=== PATIENT | female | born 1990 | race Caucasian/White ===

== ENCOUNTER 2017-04-10 08:38 | Emergency (ER) | payer OTHER ==
[~2017-04-10] VITALS: Ht 154.9 cm; Wt 75.6 kg
[~2017-04-10 08:38] MED LIST: CIPR-249 PO; FLOM5CAP PO; LORT1TAB PO; TYLE325T5 PO
[2017-04-10] MEDS ORDERED: ONDANSETRON 4MG/2ML VIAL (J2405) IV ONE (09:15)
[2017-04-10] MEDS ORDERED: MORPHINE 4 MG/ML 1ML SYRINGE IV ONE ×2 (09:15→11:15)
[2017-04-10 09:23] LABS: CONTROL LINE UCG INT CTR LINE PRESENT
[2017-04-10] MEDS ORDERED: KETOROLAC 30 MG/ML VIAL (J1885) IV ONE (09:30)
[2017-04-10 09:46] LABS: MEAN CORPUSCULAR HEMOGLOBIN 30.4 pg (27.0-33.0); MEAN CORPUSCULAR HGB CONC 33.3 g/dl (32.0-36.5); MEAN CORPUSCULAR VOLUME 91.2 fl (80.0-96.0); WHITE BLOOD COUNT 5.6 K/mm3 (4.0-10.0)
[2017-04-10 10:12] LABS: ANION GAP 3 MEQ/L (8-16); BLOOD UREA NITROGEN 11 MG/DL (7-18); CALCIUM LEVEL 8.5 MG/DL (8.5-10.1); CARBON DIOXIDE LEVEL 31 MEQ/L (21-32); CHLORIDE LEVEL 107 MEQ/L (98-107); CREATININE FOR GFR 0.75 MG/DL (0.55-1.02); GLOMERULAR FILTRATION RATE > 60.0 (>60); GLUCOSE, FASTING 95 MG/DL (70-105); SODIUM LEVEL 141 MEQ/L (136-145)
[2017-04-10] MEDS ORDERED: PERC5TAB12 PO (12:09)
[2017-04-10] MEDS ORDERED: KETO10TAB PO (12:11)
--- NOTE | 2017-04-10 12:14 | REP ---
Clinical: Left flank pain. Comparison: 05/27/2016. Findings: Current examination demonstrates mild acute left-sided obstructive uropathy with mild hydroureteronephrosis and perinephric stranding secondary to a 3 mm obstructing calculus at the ureterovesical junction (image 121). 2 mm nonobstructing left renal calculus also identified. The right kidney/ureter and bladder appear normal. Liver, spleen, pancreas, and bilateral adrenal glands are normal for noncontrast evaluation. Subcentimeter hepatic cyst again suggested. The enteric system is without obstruction or acute inflammatory process. Pelvis demonstrates collapsed normal bladder and age-appropriate uterus/adnexa. No pelvic fluid or ascites. No free air. No adenopathy. Abdominal aorta without aneurysm. Surrounding musculoskeletal structures are intact. Impression: Mild acute left-sided obstructive uropathy with a 3 mm calculus at the ureterovesical junction and 2 mm nonobstructing left renal calculus. Signed by Zacarias Aparicio MD 04/10/2017 10:00 A
[2017-04-10] MEDS ORDERED: PERCOCET 5MG/325MG TAB PO ONE ×2 (12:30→16:45)
[2017-04-10] MEDS ORDERED: MORPHINE 2 MG/ML 1ML SYRINGE IV ONE (12:30)
[2017-04-10] MEDS ORDERED: PREN29CH PO (15:25)
[2017-04-10] MEDS ORDERED: ZZZQ50LI PO (15:25)
[2017-04-10] MEDS ORDERED: CHILLIQ10 PO (15:25)
[2017-04-10 16:34] VITALS: BP 114/69
--- NOTE | 2017-04-10 16:55 | CR ---
DATE OF CONSULTATION: 04/10/2017 CONSULTING PHYSICIAN: Dr. Kelly Conway MOGUL OPERATOR: Dr. Param Robertson REASON FOR CONSULTATION: Left flank pain due to 3 mm distal ureteral stone. HISTORY OF PRESENT ILLNESS: This is a 26-year-old female patient who has been having severe pain since 24 hours ago. For this reason, she came to the emergency department at [facility]. The pain was 9 out of 10. She was given IV and pain medication. The pain has come down. It is a 3 mm stone in the intramural portion of the left ureter causing left flank pain. She has no signs of symptoms of infection or sepsis. She is completely asymptomatic at this moment in time when I see the patient. She was actually sleeping, we woke her up and talked with her. The pain has gone down, it is 3 out of 10. She has no nausea and no vomiting. She refers to the pain actually as gone when she is lying down, when she stands and walks the pain is increased a little more, 3 out of 10. At this moment in time, she has no pain at all. PHYSICAL EXAMINATION: She is awake, oriented times three. Well nourished. Well hydrated. HEENT: Negative. HEART: Regular rate and rhythm. No murmurs, no gallops. ABDOMEN: Soft, nontender, nondistended. Left flank percussion is positive times 1+, right flank percussion is negative. MUSCULOSKELETAL: Intact. Is able to move her upper and lower extremities. LUNGS: Clear to auscultation. No rhonchi. IMPRESSION/PLAN: This is a 26-year-old female patient with a left flank pain due to a left distal ureteral stone of 3 mm in diameter. PLAN: The patient has elected to actually go to her house and be discharged with pain medication. She will followup at [facility] in about 3 to 5 days to continue her on pain medication. There is a very high chance, 90% chance, that this stone can be passed with oral pain medication in about 1 to 2 weeks. If it does not pass, we will electively treat the stone surgically, but at this moment in time we will give her a chance to actually pass the stone with medical expulsive therapy.
== END 2017-04-10 16:43 | disposition home or self-care (01) ==
LOC: M ED 09:14
DX: N20.1 Calculus of ureter (principal)
CPT/HCPCS: 74176; 80048; 81001; 84703; 85027; 87086; 96374; 96375; 96376; 99283; J1885; J2405

== ENCOUNTER 2017-05-17 11:46 | Emergency (ER) | payer OTHER ==
[~2017-05-17] VITALS: Ht 154.9 cm; Wt 73.2 kg
[~2017-05-17 11:46] MED LIST changes: +CHILLIQ10 PO; +KETO10TAB PO; +PERC5TAB12 PO; +PREN29CH PO; +ZZZQ50LI PO
[2017-05-17] MEDS ORDERED: ONDANSETRON 4 MG ORAL DISINTEGRATING TAB (S0181) PO ONE (12:30)
[2017-05-17 12:43] LABS: BASO % 0.7 % (0.0-1.0); EOS # 0.1 K/mm3 (0.0-0.50); EOS % 2.6 % (0.0-3.0); LARGE UNSTAINED CELL # 0.1 K/mm3 (0.0-0.4); LYMPH # 1.1 K/mm3 (1.5-6.5); LYMPH % 21.8 % (24.0-44.0); MEAN CORPUSCULAR HEMOGLOBIN 30.8 pg (27.0-33.0); MEAN CORPUSCULAR HGB CONC 35.2 g/dl (32.0-36.5); MEAN CORPUSCULAR VOLUME 87.5 fl (80.0-96.0); MONO # 0.2 K/mm3 (0.0-0.8); MONO % 3.9 % (0.0-5.0); NEUTROPHILS # 3.4 K/mm3 (1.8-7.7); NEUTROPHILS % 69.9 % (36.0-66.0); PLATELET COUNT, AUTOMATED 178 k/mm3 (150-450); RED CELL DISTRIBUTION WIDTH 12.9 % (11.5-14.5); WHITE BLOOD COUNT 4.9 K/mm3 (4.0-10.0)
[2017-05-17 13:01] LABS: ALBUMIN 4.2 GM/DL (3.2-5.2); ALBUMIN/GLOBULIN RATIO 1.45 (1.00-1.93); ALKALINE PHOSPHATASE 63 U/L (45-117); ALT/SGPT 17 U/L (12-78); ANION GAP 8 MEQ/L (8-16); AST/SGOT 11 U/L (15-37); BILIRUBIN,DIRECT 0.4 MG/DL (0.0-0.2); BLOOD UREA NITROGEN 9 MG/DL (7-18); CARBON DIOXIDE LEVEL 27 MEQ/L (21-32); CHLORIDE LEVEL 106 MEQ/L (98-107); CREATININE FOR GFR 0.74 MG/DL (0.55-1.02); GLOMERULAR FILTRATION RATE > 60.0 (>60); GLUCOSE, FASTING 84 MG/DL (70-105); POTASSIUM SERUM 3.9 MEQ/L (3.5-5.1); SODIUM LEVEL 141 MEQ/L (136-145); TOTAL PROTEIN 7.1 GM/DL (6.4-8.2)
[2017-05-17 13:53] VITALS: BP 123/72
[2017-05-17 13:59] LABS: MICROSCOPIC INDICATED? MAN YES (NO)
[2017-05-17 14:09] LABS: BACTERIA, URINE LARGE AMOUNT; RBC, URINE TNTC /hpf (0-3); SQUAMOUS EPITHELIAL CELL URINE SMALL AMOUNT /hpf (SMALL AMT); WBC, URINE TNTC /hpf (0-3)
[2017-05-17 14:10] LABS: MICROSCOPIC EXAM PERFORMED
[2017-05-17] MEDS ORDERED: MACR100C43 PO (14:17)
[2017-05-17] MEDS ORDERED: ZOFR4TAB3 PO (14:17)
== END 2017-05-17 14:23 | disposition home or self-care (01) ==
LOC: M ED 11:46
DX: N30.91 Cystitis, unspecified with hematuria (principal); E86.0 Dehydration

== ENCOUNTER → 2017-05-31 | Outpatient (REF) | payer OTHER ==
[~2017-05-31] MED LIST changes: +MACR100C43 PO; +ZOFR4TAB3 PO
[2017-05-31 14:03] LABS: BASO % 0.3 % (0.0-1.0); EOS # 0.1 K/mm3 (0.0-0.50); LARGE UNSTAINED CELL # 0.1 K/mm3 (0.0-0.4); LARGE UNSTAINED CELL % 1.5 % (0.0-4.0); LYMPH # 1.2 K/mm3 (1.5-6.5); LYMPH % 24.8 % (24.0-44.0); MEAN CORPUSCULAR HEMOGLOBIN 30.8 pg (27.0-33.0); MEAN CORPUSCULAR HGB CONC 33.8 g/dl (32.0-36.5); MONO # 0.3 K/mm3 (0.0-0.8); MONO % 5.6 % (0.0-5.0); NEUTROPHILS % 64.8 % (36.0-66.0); PLATELET COUNT, AUTOMATED 189 k/mm3 (150-450); RED CELL DISTRIBUTION WIDTH 13.2 % (11.5-14.5); WHITE BLOOD COUNT 4.7 K/mm3 (4.0-10.0)
[2017-05-31 14:45] LABS: ALBUMIN 4.3 GM/DL (3.2-5.2); ALBUMIN/GLOBULIN RATIO 1.48 (1.00-1.93); ALKALINE PHOSPHATASE 57 U/L (45-117); ALT/SGPT 25 U/L (12-78); ANION GAP 9 MEQ/L (8-16); AST/SGOT 14 U/L (15-37); BILIRUBIN,TOTAL 1.9 MG/DL (0.2-1.0); BLOOD UREA NITROGEN 7 MG/DL (7-18); CALCIUM LEVEL 8.7 MG/DL (8.5-10.1); CARBON DIOXIDE LEVEL 28 MEQ/L (21-32); CHLORIDE LEVEL 106 MEQ/L (98-107); CHOLESTEROL LEVEL 159 MG/DL (<200); CREATININE FOR GFR 0.71 MG/DL (0.55-1.02); GLOMERULAR FILTRATION RATE > 60.0 (>60); GLUCOSE, FASTING 74 MG/DL (70-105); SODIUM LEVEL 143 MEQ/L (136-145); TOTAL PROTEIN 7.2 GM/DL (6.4-8.2); TRIGLYCERIDES LEVEL 52 MG/DL (<150)
== END ==
LOC: M SFHCPLAZ 10:04
PROVIDERS: ATTEND Nurse Practitioner Family
DX: Z00.00 Encounter for general adult medical examination without abnormal findings (principal); N20.0 Calculus of kidney; Z13.220 Encounter for screening for lipoid disorders; N39.0 Urinary tract infection, site not specified

== ENCOUNTER → 2017-07-21 | Outpatient (REF) | payer OTHER ==
[2017-07-21 17:41] LABS: BASO # 0.1 10^3/uL (0.0-0.2); EOS # 0.2 10^3/uL (0.0-0.50); EOS % 3.4 % (0.0-3.0); IMMATURE GRANULOCYTE % 0.2 % (0-0); LYMPH # 1.4 10^3/uL (1.5-6.5); LYMPH % 28.8 % (24.0-44.0); MEAN CORPUSCULAR HEMOGLOBIN 30.3 pg (27.0-33.0); MEAN CORPUSCULAR HGB CONC 32.7 g/dl (32.0-36.5); MEAN CORPUSCULAR VOLUME 92.7 fl (80.0-96.0); MONO # 0.3 10^3/uL (0.0-0.8); MONO % 5.8 % (0.0-5.0); NEUTROPHILS % 60.8 % (36.0-66.0); PLATELET COUNT, AUTOMATED 189 10^3/uL (150-450); RED CELL DISTRIBUTION WIDTH 13.3 % (11.5-14.5)
[2017-07-24 11:03] LABS: CONTROL LINE MONO RF C INT CTR LINE PRESENT
== END ==
LOC: M SFHCPLAZ 14:52
PROVIDERS: ATTEND Nurse Practitioner Family
DX: J02.9 Acute pharyngitis, unspecified (principal)

== ENCOUNTER → 2017-08-31 | Outpatient (REF) | payer OTHER ==
[2017-08-31 12:03] LABS: BASO % 0.4 % (0.0-1.0); EOS # 0.1 10^3/uL (0.0-0.50); EOS % 1.3 % (0.0-3.0); IMMATURE GRANULOCYTE % 0.4 % (0-0); LYMPH # 1.6 10^3/uL (1.5-6.5); LYMPH % 20.5 % (24.0-44.0); MEAN CORPUSCULAR HEMOGLOBIN 30.1 pg (27.0-33.0); MEAN CORPUSCULAR VOLUME 91.2 fl (80.0-96.0); MONO # 0.4 10^3/uL (0.0-0.8); MONO % 4.8 % (0.0-5.0); NEUTROPHILS # 5.6 10^3/uL (1.8-7.7); NEUTROPHILS % 72.6 % (36.0-66.0); PLATELET COUNT, AUTOMATED 199 10^3/uL (150-450); WHITE BLOOD COUNT 7.7 10^3/uL (4.0-10.0)
[2017-08-31 12:33] LABS: ALBUMIN/GLOBULIN RATIO 1.33 (1.00-1.93); ALKALINE PHOSPHATASE 62 U/L (45-117); ALT/SGPT 22 U/L (12-78); ANION GAP 8 MEQ/L (8-16); AST/SGOT 10 U/L (7-37); BILIRUBIN,TOTAL 1.3 MG/DL (0.2-1.0); BLOOD UREA NITROGEN 7 MG/DL (7-18); CARBON DIOXIDE LEVEL 28 MEQ/L (21-32); CHLORIDE LEVEL 106 MEQ/L (98-107); CREATININE FOR GFR 0.69 MG/DL (0.55-1.02); GLOMERULAR FILTRATION RATE > 60.0 (>60); GLUCOSE, FASTING 91 MG/DL (70-105); POTASSIUM SERUM 4.3 MEQ/L (3.5-5.1); SODIUM LEVEL 142 MEQ/L (136-145)
== END ==
LOC: M SFHCPLAZ 09:54
PROVIDERS: ATTEND Nurse Practitioner Family
DX: K21.9 Gastro-esophageal reflux disease without esophagitis (principal); R10.13 Epigastric pain

== ENCOUNTER → 2018-06-07 | Outpatient (REF) | payer OTHER ==
[2018-06-07 15:44] LABS: BASO % 0.6 % (0.0-1.0); EOS # 0.1 10^3/uL (0.0-0.50); EOS % 1.4 % (0.0-3.0); HEMATOCRIT 40.6 % (36.0-47.0); HEMOGLOBIN 13.8 g/dl (12.0-15.5); IMMATURE GRANULOCYTE % 0.2 % (0-3.0); LYMPH # 1.2 10^3/uL (1.5-6.5); LYMPH % 24.5 % (24.0-44.0); MEAN CORPUSCULAR HEMOGLOBIN 30.5 pg (27.0-33.0); MEAN CORPUSCULAR VOLUME 89.8 fl (80.0-96.0); MONO # 0.2 10^3/uL (0.0-0.8); MONO % 4.8 % (0.0-5.0); NEUTROPHILS # 3.5 10^3/uL (1.8-7.7); NEUTROPHILS % 68.5 % (36.0-66.0); PLATELET COUNT, AUTOMATED 160 10^3/uL (150-450); RED BLOOD COUNT 4.52 10^6/uL (4.00-5.40); RED CELL DISTRIBUTION WIDTH 13.2 % (11.5-14.5)
[2018-06-07 16:04] LABS: ESTIMATED AVERAGE GLUCOSE 88 MG/DL (60-110); HEMOGLOBIN A1c 4.7 %
[2018-06-07 16:15] LABS: ALBUMIN 3.8 GM/DL (3.2-5.2); ALBUMIN/GLOBULIN RATIO 1.31 (1.00-1.93); ALKALINE PHOSPHATASE 54 U/L (45-117); ALT/SGPT 23 U/L (12-78); AMYLASE 28 U/L (25-115); ANION GAP 6 MEQ/L (8-16); AST/SGOT 11 U/L (7-37); BLOOD UREA NITROGEN 10 MG/DL (7-18); CALCIUM LEVEL 8.5 MG/DL (8.5-10.1); CARBON DIOXIDE LEVEL 28 MEQ/L (21-32); CHLORIDE LEVEL 105 MEQ/L (98-107); CREATININE FOR GFR 0.73 MG/DL (0.55-1.30); FREE T4 1.26 NG/DL (0.76-1.46); GLOMERULAR FILTRATION RATE > 60.0 (>60); GLUCOSE, FASTING 72 MG/DL (70-100); HCG, SERUM QUANTITATIVE < 1.0 MIU/ML; LIPASE 124 U/L (73-393); SODIUM LEVEL 139 MEQ/L (136-145); THYROID STIMULATING HORMONE 0.862 uIU/ML (0.358-3.740); TOTAL PROTEIN 6.7 GM/DL (6.4-8.2)
== END ==
LOC: M SFHCPLAZ 14:13
DX: R11.11 Vomiting without nausea (principal)

== ENCOUNTER → 2020-02-19 | Outpatient (CLI) | payer OTHER ==
[~2020-02-19] MED LIST changes: +FLOM0.4C39 PO; -FLOM5CAP PO; +PREN1CHW6 PO; -PREN29CH PO; +ZOFR4TAB14 PO; -ZOFR4TAB3 PO
[2020-02-19 19:27] LABS: BASO % 0.5 % (0.0-1.0); EOS # 0.2 10^3/uL (0.0-0.5); EOS % 2.9 % (0.0-3.0); HEMATOCRIT 41.3 % (36.0-47.0); HEMOGLOBIN 13.9 g/dl (12.0-15.5); LYMPH # 1.4 10^3/uL (1.5-5.0); LYMPH % 25.3 % (24.0-44.0); MEAN CORPUSCULAR HEMOGLOBIN 31.7 pg (27.0-33.0); MEAN CORPUSCULAR HGB CONC 33.7 g/dl (32.0-36.5); MEAN CORPUSCULAR VOLUME 94.3 fl (80.0-96.0); MONO # 0.3 10^3/uL (0.0-0.8); MONO % 4.9 % (0.0-5.0); NEUTROPHILS # 3.7 10^3/uL (1.5-8.5); PLATELET COUNT, AUTOMATED 176 10^3/uL (150-450); RED BLOOD COUNT 4.38 10^6/uL (4.00-5.40); WHITE BLOOD COUNT 5.5 10^3/uL (4.0-10.0)
[2020-02-19 19:30] LABS: MONO SCRN NEGATIVE (NEGATIVE)
[2020-02-19 19:37] LABS: ALBUMIN 3.6 GM/DL (3.2-5.2); ALT/SGPT 30 U/L (12-78); BILIRUBIN,TOTAL 1.9 MG/DL (0.2-1.0); BLOOD UREA NITROGEN 7 MG/DL (7-18); C REACTIVE PROTEIN QUANTITATIV < 0.30 MG/DL (0.00-0.30); CALCIUM LEVEL 8.6 MG/DL (8.5-10.1); CARBON DIOXIDE LEVEL 29 MEQ/L (21-32); CHLORIDE LEVEL 107 MEQ/L (98-107); CREATININE FOR GFR 0.81 MG/DL (0.55-1.30); GLOMERULAR FILTRATION RATE > 60.0 (>60); GLUCOSE, FASTING 81 MG/DL (70-100); POTASSIUM SERUM 4.2 MEQ/L (3.5-5.1); SODIUM LEVEL 140 MEQ/L (136-145); TOTAL PROTEIN 6.2 GM/DL (6.4-8.2)
[2020-02-22 00:06] LABS: ANA (HEP2) Negative (.); C-PEPTIDE 2.7 ng/mL (1.1-4.4); Lyme Disease IgG/IgM Antibodie <0.91 ISR (0.00-0.90); Lyme Disease IgM Ab Quantitati <0.80 index (0.00-0.79); SSA SJOGRENS A <0.2 AI (0.0-0.9); SSB SJOGRENS B 0.6 AI (0.0-0.9)
== END ==
LOC: M WUC 15:57
PROVIDERS: ATTEND Family Medicine
DX: K11.20 Sialoadenitis, unspecified (principal)

== ENCOUNTER → 2020-03-20 | Outpatient (REF) | payer OTHER, SELFPAY ==
[2020-03-20 15:27] LABS: BASO % 0.6 % (0.0-1.0); EOS # 0.3 10^3/uL (0.0-0.5); EOS % 5.2 % (0.0-3.0); HEMATOCRIT 40.6 % (36.0-47.0); HEMOGLOBIN 13.3 g/dl (12.0-15.5); LYMPH # 1.3 10^3/uL (1.5-5.0); LYMPH % 25.7 % (24.0-44.0); MEAN CORPUSCULAR HEMOGLOBIN 31.2 pg (27.0-33.0); MEAN CORPUSCULAR HGB CONC 32.8 g/dl (32.0-36.5); MEAN CORPUSCULAR VOLUME 95.3 fl (80.0-96.0); MONO # 0.3 10^3/uL (0.0-0.8); MONO % 5.2 % (0.0-5.0); NEUTROPHILS # 3.1 10^3/uL (1.5-8.5); NEUTROPHILS % 63.1 % (36.0-66.0); PLATELET COUNT, AUTOMATED 210 10^3/uL (150-450); RED BLOOD COUNT 4.26 10^6/uL (4.00-5.40)
[2020-03-20 15:36] LABS: BLOOD UREA NITROGEN 10 MG/DL (7-18); CALCIUM LEVEL 8.8 MG/DL (8.5-10.1); CARBON DIOXIDE LEVEL 28 MEQ/L (21-32); CHLORIDE LEVEL 108 MEQ/L (98-107); CREATININE FOR GFR 0.78 MG/DL (0.55-1.30); FERRITIN 36 NG/ML (8-252); FREE T4 1.19 NG/DL (0.76-1.46); GLOMERULAR FILTRATION RATE > 60.0 (>60); GLUCOSE, FASTING 81 MG/DL (70-100); IRON (FE) 130 UG/DL (50-170); PERCENT SATURATION 26.8 % (13.2-45.0); POTASSIUM SERUM 4.8 MEQ/L (3.5-5.1); SODIUM LEVEL 140 MEQ/L (136-145); TOTAL IRON BINDING CAPACITY 485 UG/DL (250-450)
[2020-03-20 15:37] LABS: VITAMIN B12 LEVEL 289 PG/ML (247-911)
[2020-03-20 15:40] LABS: HEMOGLOBIN A1c 4.4 %
== END ==
LOC: M SFHCPLAZ 13:29
PROVIDERS: ATTEND Physician Assistant
DX: R53.83 Other fatigue (principal); N92.6 Irregular menstruation, unspecified; R20.2 Paresthesia of skin

== ENCOUNTER → 2020-04-13 | Outpatient (REF) | payer OTHER, SELFPAY ==
[2020-04-13 20:26] LABS: CHLAMYDIA DNA AMPLIFICATION NEGATIVE (NEGATIVE); GC DNA AMPLIFICATION NEGATIVE (NEGATIVE)
== END ==
LOC: M SFHCWAGY 16:53
PROVIDERS: ATTEND Obstetrics & Gynecology
DX: Z11.3 Encounter for screening for infections with a predominantly sexual mode of transmission (principal); Z12.4 Encounter for screening for malignant neoplasm of cervix; Z01.419 Encounter for gynecological examination (general) (routine) without abnormal findings

== ENCOUNTER 2020-09-24 10:30 | Emergency (ER) | payer OTHER, SELFPAY ==
[~2020-09-24] VITALS: Ht 154.9 cm; Wt 76.4 kg
[2020-09-24 12:05] LABS: BASO % 0.7 % (0.0-1.0); EOS # 0.1 10^3/uL (0.0-0.5); EOS % 2.9 % (0.0-3.0); HEMATOCRIT 39.4 % (36.0-47.0); HEMOGLOBIN 12.8 g/dl (12.0-15.5); LYMPH # 1.4 10^3/uL (1.5-5.0); LYMPH % 32.1 % (24.0-44.0); MEAN CORPUSCULAR HEMOGLOBIN 30.3 pg (27.0-33.0); MEAN CORPUSCULAR HGB CONC 32.5 g/dl (32.0-36.5); MEAN CORPUSCULAR VOLUME 93.1 fl (80.0-96.0); MONO # 0.2 10^3/uL (0.0-0.8); NEUTROPHILS # 2.5 10^3/uL (1.5-8.5); NEUTROPHILS % 59.1 % (36.0-66.0); PLATELET COUNT, AUTOMATED 157 10^3/uL (150-450); RED BLOOD COUNT 4.23 10^6/uL (4.00-5.40); WHITE BLOOD COUNT 4.2 10^3/uL (4.0-10.0)
[2020-09-24 12:17] LABS: INR 0.84; PROTHROMBIN TIME 11.7 SECONDS (12.5-14.3)
[2020-09-24 12:37] LABS: RSV AMPLIFICATION NEGATIVE (NEGATIVE)
[2020-09-24 12:42] LABS: ALBUMIN 3.7 GM/DL (3.2-5.2); ALT/SGPT 20 U/L (12-78); BILIRUBIN,DIRECT 0.4 MG/DL (0.0-0.2); BILIRUBIN,TOTAL 1.5 MG/DL (0.2-1.0); BLOOD UREA NITROGEN 12 MG/DL (7-18); CALCIUM LEVEL 8.6 MG/DL (8.5-10.1); CARBON DIOXIDE LEVEL 29 MEQ/L (21-32); CHLORIDE LEVEL 109 MEQ/L (98-107); CK-MB VALUE MASS < 1.0 NG/ML (<3.6); CPK CREATINE PHOSPHOKINASE 40 U/L (26-192); CREATININE FOR GFR 0.86 MG/DL (0.55-1.30); GLOMERULAR FILTRATION RATE > 60.0 (>60); GLUCOSE, FASTING 88 MG/DL (70-100); SODIUM LEVEL 141 MEQ/L (136-145); THYROXINE (T4) 11.7 UG/DL (4.5-12.0); TOTAL PROTEIN 6.2 GM/DL (6.4-8.2); TROPONIN I < 0.02 NG/ML (< 0.10)
[2020-09-24 12:45] LABS: HCG, SERUM QUALITATIVE NEGATIVE (NEGATIVE)
--- NOTE | 2020-09-24 13:19 | REP ---
INDICATION: DYSPNEA/COUGH. COMPARISON: Comparison chest x-ray May 27, 2016.. TECHNIQUE: Sitting AP portable chest x-ray. FINDINGS: The lungs are well inflated and clear. The pleural angles are sharp. Heart size is normal. Pulmonary vasculature is not increased. No bony abnormality is seen. There are clips in right upper quadrant of the abdomen consistent with a previous cholecystectomy. IMPRESSION: No active disease. <Electronically signed by Sushil Smith > 09/24/20 [id number]
[2020-09-24] MEDS ORDERED: ISOVUE-370 76% 100ML VIAL As Ordered ONE (13:26)
[2020-09-24] MEDS ORDERED: NS 1,000 ML IV ONE (13:30)
--- NOTE | 2020-09-24 14:06 | REP ---
INDICATION: dyspnea. COMPARISON: Abdomen and pelvis CT dated 04/10/2017. TECHNIQUE: CT of the abdomen and pelvis with IV contrast FINDINGS: CT of the abdomen and pelvis with IV contrast performed contiguously with the chest CT this same date. The visualized lung martinez are unremarkable. The hepatic parenchyma is unremarkable. There are surgical clips in the gallbladder fossa. This is unchanged. The pancreas and spleen are unremarkable. The adrenals are unremarkable. The kidneys are unremarkable. There is no hydronephrosis. The abdominal aorta is unremarkable. There is no periaortic adenopathy or mass. The bowel and mesentery are unremarkable. There is no ascites. There is no pneumoperitoneum. Pelvis: The uterus is unremarkable. There is a 12 mm left ovarian follicle. There is a 2.5 cm right ovarian cyst. There is no free fluid in the pelvis. There is no pelvic adenopathy. Bladder is unremarkable. The pelvic bowel loops are unremarkable. The appendix is unremarkable. IMPRESSION: Right ovarian cyst. Left ovarian follicle. No ascites. No bowel distention. No hydronephrosis. Otherwise, negative abdomen and pelvis CT. <Electronically signed by Gerardo Snider > 09/24/20 2009
--- NOTE | 2020-09-24 14:16 | REP ---
INDICATION: dyspnea. COMPARISON: None. TECHNIQUE: CT of the chest with IV contrast, CT pulmonary angio protocol. FINDINGS: There are no emboli in the pulmonary artery trunk or central pulmonary arteries or in the lobar segment branches. There are no infiltrates or pleural effusions. There are no masses or nodules. There is no mediastinal, hilar or axillary lymph node enlargement. The thoracic aorta is unremarkable. Cardiac size is normal. There is no pericardial effusion. IMPRESSION: There are no pulmonary emboli. Otherwise, negative CT study of the chest. <Electronically signed by Gerardo Snider > 09/24/20 [id number]
[2020-09-24 15:19] VITALS: BP 126/75
== END 2020-09-24 15:25 | disposition home or self-care (01) ==
LOC: M ED 10:30
DX: R06.02 Shortness of breath (principal); R05 Cough; B34.9 Viral infection, unspecified; N83.201 Unspecified ovarian cyst, right side; G43.909 Migraine, unspecified, not intractable, without status migrainosus; K21.9 Gastro-esophageal reflux disease without esophagitis; I73.00 Raynaud's syndrome without gangrene; Z88.5 Allergy status to narcotic agent; Z88.8 Allergy status to other drugs, medicaments and biological substances
CPT/HCPCS: 36415; 71045; 71275; 74177; 80048; 80076; 81001; 82550; 82553; 83690; 84436; 84443; 84484; 84703; 85025; 85610; 87086; 87631; 93041; 94760; 96360; 96361; 99284; Q9967

== ENCOUNTER 2021-03-11 15:25 | Emergency (ER) | payer OTHER ==
[~2021-03-11] VITALS: Ht 154.9 cm; Wt 76.0 kg
[2021-03-11 15:26] VITALS: BP 118/84
[2021-03-11] MEDS ORDERED: PANTOPRAZOLE 40MG VIAL (C9113 PER 1) IV ONE (17:05)
[2021-03-11 17:10] LABS: BASO % 0.3 % (0.0-1.0); HEMATOCRIT 40.9 % (36.0-47.0); HEMOGLOBIN 13.7 g/dl (12.0-15.5); LYMPH # 1.1 10^3/uL (1.5-5.0); LYMPH % 29.1 % (24.0-44.0); MEAN CORPUSCULAR HGB CONC 33.5 g/dl (32.0-36.5); MEAN CORPUSCULAR VOLUME 95.6 fl (80.0-96.0); MONO # 0.2 10^3/uL (0.0-0.8); MONO % 5.7 % (2.0-8.0); NEUTROPHILS # 2.5 10^3/uL (1.5-8.5); NEUTROPHILS % 63.6 % (36.0-66.0); PLATELET COUNT, AUTOMATED 167 10^3/uL (150-450); RED BLOOD COUNT 4.28 10^6/uL (4.00-5.40); WHITE BLOOD COUNT 3.9 10^3/uL (4.0-10.0)
[2021-03-11 17:31] LABS: HCG, SERUM QUALITATIVE NEGATIVE (NEGATIVE)
[2021-03-11 17:34] LABS: ALBUMIN 3.8 GM/DL (3.2-5.2); ALT/SGPT 20 U/L (12-78); BILIRUBIN,DIRECT 0.3 MG/DL (0.0-0.2); BILIRUBIN,TOTAL 3.1 MG/DL (0.2-1.0); BLOOD UREA NITROGEN 7 MG/DL (7-18); CALCIUM LEVEL 8.7 MG/DL (8.5-10.1); CARBON DIOXIDE LEVEL 27 MEQ/L (21-32); CHLORIDE LEVEL 108 MEQ/L (98-107); CK-MB VALUE MASS < 1.0 NG/ML (<3.6); CPK CREATINE PHOSPHOKINASE 50 U/L (26-192); CREATININE FOR GFR 0.75 MG/DL (0.55-1.30); FREE T4 1.24 NG/DL (0.76-1.46); GLOMERULAR FILTRATION RATE > 60.0 (>60); GLUCOSE, FASTING 89 MG/DL (70-100); LIPASE 81 U/L (73-393); POTASSIUM SERUM 4.3 MEQ/L (3.5-5.1); SODIUM LEVEL 140 MEQ/L (136-145); TOTAL PROTEIN 6.3 GM/DL (6.4-8.2); TROPONIN I < 0.02 NG/ML (< 0.10)
[2021-03-11] MEDS ORDERED: ISOVUE-370 76% 100ML VIAL As Ordered ONE (17:49)
--- NOTE | 2021-03-11 18:20 | REP ---
INDICATION: CHEST PAIN COMPARISON: 09/24/2020 TECHNIQUE: PA and lateral. FINDINGS: The mediastinum and cardiac silhouette are normal. The lung martinez are clear and without acute consolidation, effusion, or pneumothorax. The skeletal structures are intact and normal. IMPRESSION: No acute cardiopulmonary process. <Electronically signed by Zacarias Aparicio > 03/11/21 [id number]
[2021-03-11] MEDS: GASTROGRAFIN SOLUTION 30ML PO SCH ×2 (18:31→18:57)
[2021-03-11] MEDS ORDERED: ONDANSETRON 4MG/2ML VIAL As Ordered ONE (18:34)
[2021-03-11] MEDS ORDERED: ONDANSETRON 4MG/2ML VIAL IV ONE (18:35)
--- NOTE | 2021-03-11 19:58 | ECGEPIP ---
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
--- NOTE | 2021-03-11 20:53 | REPVR ---
PROCEDURE INFORMATION: Exam: CTA Chest With Contrast Exam date and time: 03/11/2021 8:05 PM Age: 30 years old Clinical indication: Pain; Shortness of breath; Chest pressure; Additional info: Cp/sob TECHNIQUE: Imaging protocol: Computed tomographic angiography of the chest with contrast. Axial, coronal and sagittal reformatted images were created and reviewed. 3D rendering (Not supervised by radiologist): MIP and/or 3D reconstructed images were created by the technologist. Radiation optimization: All CT scans at this facility use at least one of these dose optimization techniques: automated exposure control; mA and/or kV adjustment per patient size (includes targeted exams where dose is matched to clinical indication); or iterative reconstruction. Contrast material: ISOVUE 370; Contrast volume: 100 ml; Contrast route: INTRAVENOUS (IV); COMPARISON: CT ANGIO CHEST 09/24/2020 1:29 PM FINDINGS: Pulmonary arteries: Contrast opacification satisfactory. No intraluminal filling defect. Aorta: Unremarkable. No aneurysm or dissection. Lungs: Mild dependent atelectatic change in the lower lobes. No consolidation. Pleural spaces: Unremarkable. No pneumothorax. No pleural effusion. Heart: Unremarkable. No cardiomegaly. No pericardial effusion. Lymph nodes: No pathologically enlarged lymph nodes. Liver: 4 mm low-density lesion in the hepatic dome, too small to characterize. Gallbladder and bile ducts: Status post cholecystectomy. No biliary ductal dilatation. Bones/joints: No acute osseous abnormality. Soft tissues: Unremarkable. IMPRESSION: 1. No CT evidence of pulmonary embolism. 2. Additional findings, as above. Electronically signed by: Raghav Clement On 03/11/2021 20:53:12 PM
--- NOTE | 2021-03-11 20:59 | REPVR ---
PROCEDURE INFORMATION: Exam: CT Abdomen And Pelvis With Contrast Exam date and time: 03/11/2021 8:05 PM Age: 30 years old Clinical indication: Vomiting; Abdominal pain; Epigastric; Additional info: Vomited now has cp/epigastirc pain TECHNIQUE: Imaging protocol: Computed tomography of the abdomen and pelvis with contrast. Axial, coronal and sagittal reformatted images were created and reviewed. Radiation optimization: All CT scans at this facility use at least one of these dose optimization techniques: automated exposure control; mA and/or kV adjustment per patient size (includes targeted exams where dose is matched to clinical indication); or iterative reconstruction. Contrast material: ISOVUE 370; Contrast volume: 100 ml; Contrast route: INTRAVENOUS (IV); Other contrast: Oral, gastrographin; COMPARISON: CT ABD/PEL W/IV CONTRAST ONLY 09/24/2020 1:29 PM FINDINGS: Liver: 4 mm low-density lesions in the hepatic dome, too small to characterize. Gallbladder and bile ducts: Status post cholecystectomy. No biliary ductal dilatation. Pancreas: Unremarkable. Spleen: Unremarkable. Adrenal glands: Normal. No mass. Kidneys and ureters: No mass. No radiodense calculi. No hydronephrosis. Stomach and bowel: No bowel wall thickening. No obstruction. No pneumatosis. Appendix: Normal. Intraperitoneal space: No free fluid. No organized fluid collection. No free air. Vasculature: Unremarkable. No aneurysm. Lymph nodes: No pathologically enlarged lymph nodes. Urinary bladder: Unremarkable as visualized. Reproductive: Dominant left ovarian follicle. Bones/joints: No acute osseous abnormality. Soft tissues: Unremarkable. IMPRESSION: 1. No CT evidence of acute intra-abdominal or pelvic pathology. 2. Additional findings, as above. Electronically signed by: Raghav Clement On 03/11/2021 20:59:22 PM
[2021-03-11] MEDS ORDERED: ONDA4TAB6 PO (21:43)
[2021-03-11] MEDS ORDERED: PEPCCHW3 PO (21:43)
[2021-03-11] MEDS ORDERED: ACETAMINOPHEN TAB 650MG DOSE (2X325MG) PO ONE (22:30)
--- NOTE | 2021-03-13 08:16 | ED PDOC ---
Post-Departure Follow-Up radiology repor tfaxed to Emma Cardenas Sarah MD March 13, 2021 08:16
== END 2021-03-11 22:42 | disposition home or self-care (01) ==
LOC: M ED 15:25
DX: K21.9 Gastro-esophageal reflux disease without esophagitis (principal); R07.89 Other chest pain; F41.9 Anxiety disorder, unspecified; Z79.899 Other long term (current) drug therapy; Z88.5 Allergy status to narcotic agent; Z87.442 Personal history of urinary calculi; Z98.890 Other specified postprocedural states; Z90.49 Acquired absence of other specified parts of digestive tract
CPT/HCPCS: 71046; 71275; 74177; 80048; 80076; 82550; 82553; 83690; 84439; 84443; 84484; 84703; 85025; 93005; 96374; 96375; 99284; C9113; J2405; Q9963; Q9967

== ENCOUNTER 2021-04-15 12:30 | Emergency (ER) | payer OTHER ==
[~2021-04-15] VITALS: Ht 162.6 cm; Wt 79.1 kg
[~2021-04-15 12:30] MED LIST changes: +ONDA4TAB6 PO; +PEPCCHW3 PO
[2021-04-15] MEDS ORDERED: ONDANSETRON 4MG/2ML VIAL IV ONE (13:10)
[2021-04-15] MEDS ORDERED: NS 1,000 ML IV ONE (13:10)
[2021-04-15] MEDS ORDERED: KETOROLAC 30 MG/ML 1ML VIAL IV ONE (13:10)
[2021-04-15 13:40] LABS: BASO % 0.2 % (0.0-1.0); EOS % 0.2 % (0.0-3.0); HEMATOCRIT 44.8 % (36.0-47.0); HEMOGLOBIN 14.8 g/dl (12.0-15.5); LYMPH # 0.8 10^3/uL (1.5-5.0); LYMPH % 12.5 % (24.0-44.0); MEAN CORPUSCULAR HEMOGLOBIN 31.6 pg (27.0-33.0); MEAN CORPUSCULAR VOLUME 95.5 fl (80.0-96.0); MONO # 0.3 10^3/uL (0.0-0.8); MONO % 4.1 % (2.0-8.0); NEUTROPHILS % 82.7 % (36.0-66.0); PLATELET COUNT, AUTOMATED 191 10^3/uL (150-450); RED BLOOD COUNT 4.69 10^6/uL (4.00-5.40); WHITE BLOOD COUNT 6.1 10^3/uL (4.0-10.0)
[2021-04-15] MEDS ORDERED: MORPHINE 4 MG/ML 1ML VIAL/SYRINGE (J2270) IV ONE (13:50)
[2021-04-15] MEDS ORDERED: ISOVUE-370 76% 100ML VIAL As Ordered ONE (14:04)
[2021-04-15 14:17] LABS: ALBUMIN 4.5 GM/DL (3.2-5.2); BILIRUBIN,DIRECT 0.5 MG/DL (0.0-0.2); BILIRUBIN,TOTAL 3.5 MG/DL (0.2-1.0); TOTAL PROTEIN 7.6 GM/DL (6.4-8.2)
--- NOTE | 2021-04-15 14:29 | REP ---
INDICATION: right flank/rlq pain. COMPARISON: Multiple the latest 03/11/2021 TECHNIQUE: Standard helical technique after the intravenous administration of 100 cc Isovue 370. No oral bowel preparatory contrast was administered prior to the exam. FINDINGS: The lung bases are clear and unchanged. Incidental tiny focal areas of decreased density is seen in the liver. These are too small for precise CT characterization but are unchanged compared to multiple priors consistent with tiny hepatic cysts or focal fatty deposits. There are no enhancing hepatic lesions. The spleen, pancreas, adrenal glands, and kidneys are again seen to be within normal limits. The abdominal aorta and para-aortic regions are within normal limits. There is no free fluid or free air. The bowel loops and the mesenteries are within normal limits. The appendix is well visualized and again seen to be within normal limits unchanged. Bone window technique throughout the examination shows the osseous structures to be stable and intact. IMPRESSION: Stable CT examination of the abdomen and pelvis compared to 03/11/2021. There is no evidence of acute disease. <Electronically signed by Presley Bhatti > 04/15/21 [id number]
--- NOTE | 2021-04-15 14:35 | REP ---
INDICATION: Abdominal Pain COMPARISON: 03/11/2021 TECHNIQUE: PA and lateral. FINDINGS: The mediastinum and cardiac silhouette are normal. The lung martinez are clear and without acute consolidation, effusion, or pneumothorax. The skeletal structures are intact and normal. IMPRESSION: No acute cardiopulmonary process. <Electronically signed by Zacarias Aparicio > 04/15/21 [id number]
--- NOTE | 2021-04-15 15:37 | REP ---
INDICATION: elevated lfts/abdominal pain COMPARISON: None. TECHNIQUE: Real time gar scale ultrasound examination using curved array transducer. FINDINGS: Liver is normal in contour, size, and echogenicity without focal hepatic lesions identified. Pancreas is incompletely evaluated due to interposed bowel gas. Evidence for prior cholecystectomy. No biliary ductal dilatation is appreciated and the common bile duct measures 4.2 mm diameter. Right kidney is normal in reniform shape without hydronephrosis and measures 10.9 x 4.6 x 3.7 cm. No ascites in the visualized right upper quadrant. IMPRESSION: Essentially normal right upper quadrant ultrasound <Electronically signed by Zacarias Aparicio > 04/15/21 [id number]
[2021-04-15] MEDS ORDERED: PERCOCET 5MG/325MG TAB PO ONE (16:40)
--- NOTE | 2021-04-15 17:24 | REP ---
INDICATION: rlq pain/cramping COMPARISON: None. TECHNIQUE: Transabdominal pelvic ultrasound followed by transvaginal examination for better evaluation of the endometrium and adnexa with color Doppler evaluation of the ovaries. FINDINGS: Bladder is unremarkable and measures 6.4 x 5.0 x 1.0 cm. Normal anteverted uterus measures 7.6 x 3.3 x 4.0 cm. The endometrial complex measures 4 mm thickness. Subcentimeter nabothian cysts are identified up to 3 mm. Bilateral ovaries are normal in appearance and vascularity without evidence for torsion. Right ovary measures 3.2 x 2.0 x 1.7 cm with 1.7 cm physiologic cyst/dominant follicle and daughter cyst; R I = 0.60. Left ovary measures 2.5 x 1.2 x 1.6 cm with 1.3 cm physiologic cyst/dominant follicle; R I = 0.57. No pelvic free fluid or adnexal mass lesion. IMPRESSION: Essentially normal pelvic ultrasound. Presumed bilateral physiologic cysts. If the patient remains symptomatic consider re-evaluation in 4-6 weeks to evaluate for resolution. <Electronically signed by Zacarias Aparicio > 04/15/21 [id number]
[2021-04-15] MEDS ORDERED: IBUPROFEN 100 MG/5 ML SUSP UDC DYE FREE PO ONE (17:45)
[2021-04-15] MEDS ORDERED: ACET160L16 PO (17:55)
[2021-04-15] MEDS ORDERED: IBUP-1892 PO (17:55)
[2021-04-15] MEDS ORDERED: ONDA4TAB6 PO (17:58)
[2021-04-15 22:41] LABS: RSV AMPLIFICATION NEGATIVE (NEGATIVE)
[2021-04-16 00:03] LABS: AMPHETAMINES LEVEL URINE NEGATIVE (NEGATIVE); BARBITURATES URINE NEGATIVE (NEGATIVE); BENZODIAZEPINES URINE NEGATIVE (NEGATIVE); CANNABINOIDS URINE NEGATIVE (NEGATIVE); COCAINE METABOLITE URINE NEGATIVE (NEGATIVE); METHADONE URINE NEGATIVE (NEGATIVE); OPIATES URINE POSITIVE (NEGATIVE); PHENCYCLIDINE URINE NEGATIVE (NEGATIVE)
--- NOTE | 2021-04-16 05:43 | ECGEPIP ---
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
[2021-04-16] MEDS ORDERED: KETOROLAC TROMETHAMINE 10 MG TAB PO ONE (05:55)
[2021-04-16 08:38] VITALS: BP 117/59
== END 2021-04-16 08:42 ==
LOC: M ED 12:30
DX: N94.6 Dysmenorrhea, unspecified (principal); R45.851 Suicidal ideations; F33.9 Major depressive disorder, recurrent, unspecified; F41.9 Anxiety disorder, unspecified; N83.201 Unspecified ovarian cyst, right side; Z88.5 Allergy status to narcotic agent; Z87.42 Personal history of other diseases of the female genital tract; Z98.890 Other specified postprocedural states
CPT/HCPCS: 71046; 74177; 76705; 76830; 76856; 80047; 80076; 80307; 81001; 83605; 83690; 84702; 85025; 87631; 93005; 93976; 96374; 96375; 99284; J1885; J2270; J2405; Q9967

== ENCOUNTER → 2021-05-04 | Outpatient (CLI) | payer OTHER ==
[~2021-05-04] MED LIST changes: +ACET160L16 PO; +IBUP-1892 PO
[2021-05-04 14:25] LABS: HEMATOCRIT 38.2 % (36.0-47.0); HEMOGLOBIN 12.2 g/dl (12.0-15.5); MEAN CORPUSCULAR HGB CONC 31.9 g/dl (32.0-36.5); MEAN CORPUSCULAR VOLUME 100.3 fl (80.0-96.0); PLATELET COUNT, AUTOMATED 145 10^3/uL (150-450); RED BLOOD COUNT 3.81 10^6/uL (4.00-5.40); WHITE BLOOD COUNT 4.7 10^3/uL (4.0-10.0)
[2021-05-04 14:36] LABS: INR 0.81; PROTHROMBIN TIME 11.4 SECONDS (12.5-14.3)
[2021-05-04 14:49] LABS: ERYTHROCYTE SEDIMENTATION RATE 7 mm/hr (0-20)
[2021-05-04 15:26] LABS: ALBUMIN 3.4 GM/DL (3.2-5.2); ALT/SGPT 41 U/L (12-78); BILIRUBIN,TOTAL 0.6 MG/DL (0.2-1.0); BLOOD UREA NITROGEN 10 MG/DL (7-18); CALCIUM LEVEL 8.7 MG/DL (8.5-10.1); CARBON DIOXIDE LEVEL 31 MEQ/L (21-32); CHLORIDE LEVEL 105 MEQ/L (98-107); CREATININE FOR GFR 0.66 MG/DL (0.55-1.30); GLOMERULAR FILTRATION RATE > 60.0 (>60); GLUCOSE, FASTING 78 MG/DL (70-100); IRON (FE) 81 UG/DL (50-170); POTASSIUM SERUM 5.1 MEQ/L (3.5-5.1); SODIUM LEVEL 139 MEQ/L (136-145); VALPROIC ACID (DEPAKOTE) 39.5 UG/ML (50.0-100.0)
== END ==
LOC: M PLALAB 09:59
PROVIDERS: ATTEND Physician Assistant
DX: R23.8 Other skin changes (principal); Z51.81 Encounter for therapeutic drug level monitoring